=== PATIENT | female | born 1950 | race Caucasian/White ===

== ENCOUNTER 2021-08-08 21:16 | Observation (INO) ==
[2021-08-08 22:19] LABS: Basophils # 0.1 K/mcL (0.0-0.2); Basophils % 0.2 %; Hematocrit 45.3 % (35.3-44.9); Hemoglobin 15.8 g/dL (11.5-15.4); Immature Granulocytes % 0.5 % (0-4); Lymphocytes % 4.9 %; Mean Corpuscular HGB Conc 34.9 g/dL (31.6-35.5); Mean Corpuscular Hemoglobin 32.6 pg (28.0-33.3); Mean Corpuscular Volume 93.6 fL (83.0-100.0); Mean Platelet Volume 9.2 fL (9.4-12.4); Monocytes # 1.2 K/mcL (0.0-1.3); Monocytes % 5.6 %; Neutrophils # 18.4 K/mcL (1.6-8.9); Platelet Count 264 K/mcL (140-400); Red Blood Count 4.84 M/mcL (3.82-4.97); Red Cell Distribution Width 11.8 % (11.5-14.5); Segmented Neutrophils % 88.8 %; White Blood Count 20.7 K/mcL (4.3-11.1)
[2021-08-08 22:22] LABS: Bacteria,Urine Few per hpf (None-Few); Bilirubin,Urine Negative (Negative); Blood,Urine Moderate (Negative); Clarity,Urine Clear (Clear); Color,Urine Light-Yellow (Yellow); Glucose,Urine (UA) Normal (Normal); Ketones,Urine Trace mg/dL (Negative); Leukocyte Esterase,Urine Small (Negative); Mucus,Urine Few per lpf (None-Few); Nitrite,Urine Negative (Negative); PH,Urine 6.5 pH Units (5.0-8.0); Protein,Urine Trace mg/dL (Neg-Trace); RBC,Urine 15-30 per hpf (0-3); Specific Gravity,Urine 1.026 (1.010-1.025); Squamous Epithelial Cell,Urine Few per hpf (None-Few); Urobilinogen,Urine Normal (Normal)
[2021-08-08 22:37] LABS: Alanine Aminotransferase 20 Units/L (7-52); Albumin 4.3 g/dL (3.5-5.7); Albumin/Globulin Ratio 1.5 (1.1-2.2); Alkaline Phosphatase 72 Units/L (34-104); Aspartate Amino Transferase 14 Units/L (13-39); BUN/Creatinine Ratio 27 (6-26); Bilirubin,Direct 0.3 mg/dL (0.0-0.2); Bilirubin,Indirect 0.5 mg/dL (0.0-1.0); Bilirubin,Total 0.8 mg/dL (0.3-1.0); Blood Urea Nitrogen 17 mg/dL (8-23); Calcium 9.2 mg/dL (8.6-10.3); Carbon Dioxide 23 mEq/L (23-29); Chloride 102 mEq/L (98-107); Globulin 2.9 g/dL (2.4-3.5); Glucose 167 mg/dL (70-105); Lipase 9 Units/L (11-82); Osmolality,Calculated 285 (280-300); Potassium 3.7 mEq/L (3.5-5.1); Sodium 135 mEq/L (136-145); Total Protein 7.2 g/dL (6.4-8.9); eGFR For African Americans > 60 (> 60); eGFR For Non-African Americans > 60 (> 60)
[2021-08-08] MEDS ORDERED: Isovue-370 500 ML BOTTLE IVP ONE (22:59)
[2021-08-08] MEDS ORDERED: *HR* HYDROmorphone (PF) 1 MG/ML SYRINGE IVP STA (23:09)
[2021-08-08] MEDS ORDERED: Ondansetron 4 MG/2 ML VIAL IVP ONE (23:28)
[2021-08-08] MEDS ORDERED: Ondansetron 4 MG/2 ML VIAL ONE (23:29)
[2021-08-08] MEDS ORDERED: cefTRIAXone 1,000 MG in 0.9 % Sodium Chloride Mini Bag 100 ML IVPB ONE (23:50)
[2021-08-08] MEDS ORDERED: MetroNIDAZOLE 500 MG/100 ML 500 MG/100 ML BAG IVPB ONE (23:50)
[2021-08-09 01:03] LABS: INR 1.1; Prothrombin Time 12.1 Seconds (9.4-12.1)
[2021-08-09] MEDS ORDERED: CefOXitin 1,000 MG VIAL ONE (01:05)
[2021-08-09 01:06] LABS: Activated Partial Thrombo Time 30.5 Seconds (26.0-36.0)
[2021-08-09] MEDS ORDERED: Lidocaine -MPF 2% 5 ML VIAL ONE (01:20)
[2021-08-09] MEDS ORDERED: *HR* Succinylcholine 200 MG/10 ML VIAL IVP ONE (01:20)
[2021-08-09] MEDS ORDERED: *HR* FentaNYL (PF) 100 MCG/2 ML VIAL ONE (01:20)
[2021-08-09] MEDS ORDERED: *HR* Rocuronium Bromide 50 MG/5 ML VIAL ONE (01:20)
[2021-08-09] MEDS ORDERED: Lidocaine -MPF 4% 5 ML AMPUL ONE (01:20)
[2021-08-09] MEDS ORDERED: *HR* Propofol 200 MG/20 ML VIAL IVP ONE (01:21)
[2021-08-09] MEDS ORDERED: *HR* Midazolam HCl 2 MG/2 ML VIAL ONE (01:21)
[2021-08-09] MEDS ORDERED: Ondansetron 4 MG/2 ML VIAL IVP PRN (01:34)
[2021-08-09] MEDS ORDERED: *HR* HYDROmorphone 2 MG TABLET PO PRN (01:34)
[2021-08-09] MEDS ORDERED: *HR* HYDROmorphone (PF) 1 MG/ML SYRINGE IVP PRN (01:34)
[2021-08-09] MEDS ORDERED: Acetaminophen IV 1,000 MG/100 ML BAG IVPB ONE ×2 (01:34→01:47)
[2021-08-09] MEDS ORDERED: *HR* Labetalol 20 MG/4 ML SYRINGE IVP PRN (01:34)
[2021-08-09] MEDS ORDERED: *HR* OxyCODONE Immed Rel 5 MG TABLET PO PRN (01:34)
[2021-08-09] MEDS ORDERED: Promethazine 6.25 MG in Water for inj. (sterile) 20 ML IVPB PRN (01:34)
[2021-08-09] MEDS ORDERED: Famotidine 20 MG/2 ML VIAL IVP ONE (01:34)
[2021-08-09] MEDS ORDERED: Famotidine 20 MG/2 ML VIAL ONE (01:47)
[2021-08-09] MEDS ORDERED: *HR* Phenylephrine 10 MG/ML VIAL ONE (02:09)
[2021-08-09] MEDS ORDERED: Ondansetron 4 MG/2 ML VIAL ONE (02:22)
[2021-08-09] MEDS ORDERED: Ketorolac 30 MG/ML VIAL ONE (02:22)
[2021-08-09] MEDS ORDERED: Sugammadex Sodium 200 MG/2 ML VIAL IV ONE (02:39)
[2021-08-09] MEDS ORDERED: *HR* HYDROMORPHONE 2 MG/ML VIAL ONE (02:43)
[2021-08-09] MEDS ORDERED: *HR* Metoprolol 5 MG/5 ML VIAL IVP PRN (03:45)
[2021-08-09] MEDS: cefOXitin 2,000 MG in Water for inj. (sterile) 10 ML IVP SCH ×3 (08:29→23:17)
[2021-08-09] MEDS: *HR* OxyCODONE/APAP 5/325 TABLET PO PRN ×3 (08:37→23:21)
[2021-08-09] MEDS: Ondansetron 4 MG/2 ML VIAL IVP PRN ×2 (11:42→17:48)
[2021-08-09] MEDS: 0.9 % Sodium Chloride 1,000 ML IVC SCH ×2 (22:09→22:13)
[2021-08-09] MEDS ORDERED: CefOXitin 2,000 MG VIAL ONE (22:30)
[2021-08-10] MEDS: 0.9 % Sodium Chloride 1,000 ML IVC SCH ×3 (00:05→16:54)
[2021-08-10] MEDS: cefOXitin 2,000 MG in Water for inj. (sterile) 10 ML IVP SCH ×2 (07:47→16:39)
[2021-08-10] MEDS: Ondansetron 4 MG/2 ML VIAL IVP PRN (13:27)
[2021-08-10] MEDS: *HR* OxyCODONE/APAP 5/325 TABLET PO PRN (13:28)
[2021-08-11] MEDS: cefOXitin 2,000 MG in Water for inj. (sterile) 10 ML IVP SCH ×2 (00:10→07:58)
[2021-08-11] MEDS: *HR* OxyCODONE/APAP 5/325 TABLET PO PRN (01:35)
[2021-08-11 04:01] VITALS: O2SAT 90
[2021-08-11 07:06] LABS: Basophils # 0.1 K/mcL (0.0-0.2); Basophils % 0.6 %; Eosinophils % 0.3 %; Hematocrit 38.2 % (35.3-44.9); Immature Granulocytes % 0.4 % (0-4); Lymphocytes # 1.3 K/mcL (0.6-4.6); Lymphocytes % 13.4 %; Mean Corpuscular HGB Conc 32.7 g/dL (31.6-35.5); Mean Corpuscular Hemoglobin 32.7 pg (28.0-33.3); Mean Platelet Volume 9.4 fL (9.4-12.4); Monocytes % 10.4 %; Neutrophils # 7.4 K/mcL (1.6-8.9); Platelet Count 214 K/mcL (140-400); Red Blood Count 3.82 M/mcL (3.82-4.97); Red Cell Distribution Width 12.5 % (11.5-14.5); Segmented Neutrophils % 74.9 %
[2021-08-11 07:07] LABS: Hemoglobin 12.5 g/dL (11.5-15.4); White Blood Count 9.9 K/mcL (4.3-11.1)
[2021-08-11 07:24] LABS: BUN/Creatinine Ratio 20 (6-26); Blood Urea Nitrogen 13 mg/dL (8-23); Calcium 7.9 mg/dL (8.6-10.3); Carbon Dioxide 26 mEq/L (23-29); Chloride 108 mEq/L (98-107); Glucose 100 mg/dL (70-105); Osmolality,Calculated 286 (280-300); Potassium 3.6 mEq/L (3.5-5.1); Sodium 138 mEq/L (136-145); eGFR For African Americans > 60 (> 60); eGFR For Non-African Americans > 60 (> 60)
[2021-08-11] MEDS: 0.9 % Sodium Chloride 1,000 ML IVC SCH (07:58)
[2021-08-11] MEDS ORDERED: Ibuprofen 400 MG TABLET PO ONE (09:17)
[2021-08-11 10:45] VITALS: BP 115/72; PULSE 70; TEMP 98.4
[2021-08-11 13:38] LABS: Bilirubin,Urine Negative (Negative); Blood,Urine Small (Negative); Clarity,Urine Clear (Clear); Color,Urine Light-Yellow (Yellow); Glucose,Urine (UA) Normal (Normal); Ketones,Urine 40 mg/dL (Negative); Leukocyte Esterase,Urine Negative (Negative); Mucus,Urine Few per lpf (None-Few); Nitrite,Urine Negative (Negative); Protein,Urine Trace mg/dL (Neg-Trace); RBC,Urine 0-3 per hpf (0-3); Specific Gravity,Urine 1.028 (1.010-1.025); Squamous Epithelial Cell,Urine Few per hpf (None-Few); Urobilinogen,Urine Normal (Normal)
== END 2021-08-11 14:25 | disposition home or self-care (01) ==
LOC: 3ANU 21:16 → EMEROOARM 21:16 → 3ANU 08-09 01:38
PROVIDERS: ADMIT Surgery; ATTEND Surgery